=== PATIENT | female | born 2000 | race Caucasian/White ===

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

== ENCOUNTER 2021-10-20 14:35 | Emergency (ER) | payer OTHER ==
[2021-10-20 15:36] VITALS: BP 111/73; PULSE 66; TEMP 98.3; BMI 34.3
[2021-10-20] MEDS ORDERED: KETOROLAC TROMETHAMINE 30 MG/1 ML VIAL IM ONE (16:56)
[2021-10-20] MEDS ORDERED: KETOROLAC TROMETHAMINE 30 MG/1 ML VIAL ONE (16:56)
== END 2021-10-20 18:08 | disposition home or self-care (01) ==
LOC: JERFT 14:35
PROC: 3E023GC Introduction of Other Therapeutic Substance into Muscle, Percutaneous Approach (ICD-10-PCS; principal; 2021-10-20)
DX: N36.8 Other specified disorders of urethra (principal)
CPT/HCPCS: 99284-25